=== PATIENT | female | born 1995 | race Caucasian/White ===

== ENCOUNTER 2017-09-26 23:49 | Emergency (ER) | payer OTHER, SELFPAY ==
[2017-09-26 23:50] VITALS: BP 126/83; PULSE 78; RESP 16; TEMP 36.8; O2SAT 98; BMI 23.6
--- NOTE | 2017-09-27 00:09 | ED.VISSUMM ---
- ER Visit Summary Date of Service: 09/27/17 Chief Complaint: [] Possible allergic reaction History of Present Illness: The patient is a 21 F date she has had allergic reaction this morning. She took Augmentin for sinus infection and possible strep throat. She then took an antihistamine afterwards was cleared up her symptoms. She has no history of penicillin allergy. Came in for further evaluation. Physical Examination: [] Vital signs reviewed General: Well-nourished well-developed Head: Normocephalic atraumatic Eyes: Pupils equal round and reactive to light extraocular movements intact ENT: TMs clear no hemotympanum no trauma Neck: Nontender full range of motion Cardiovascular: Regular rate rhythm no murmurs normal S1-S2 Respiratory: No distress clear to auscultation bilaterally chest nontender Abdomen: Soft nontender nondistended normal bowel sounds no masses Back: Nontender no CVA tenderness Extremities: Nontender active range of motion ?4 extremities no trauma Skin: Normal color no trauma Neuro alert oriented cranial nerves II through XII intact normal strength sensation reflexes Test Results: [] Emergency Department Course and Treatment: the patient shows no active symptoms of allergic reaction. It appears that the medication has worked. She will continue this as needed. She will stop the Augmentin. This could be viral. Patient is adamant that she likely has strep throat as she gets this frequently. Will be switched to Omnicef and will follow-up as an outpatient. Treatment Plan: [] Disposition: [] Impression: [] Allergic reaction to Augmentin This note was generated with [employer] dictation software. It may contain incorrect words, spelling, and punctuation that were not noted in review of the chart prior to signing ED Disposition - Plan for ED Patient: Chief Complaint: Allergic Reaction Referrals: Care Physician,No Primary [Primary Care Provider] -
--- NOTE | 2017-09-27 00:11 | ED.DEP ---
ED Disposition - Plan for ED Patient: Disposition: Home or Assisted Living Chief Complaint: Allergic Reaction Instructions: ED Drug React Allergic Prescriptions: Cefdinir [Omnicef [equiv]] 300 mg PO Q12H #14 cap Referrals: Care Physician,No Primary [Primary Care Provider] -
[2017-09-27 00:31] VITALS: BP 128/80; PULSE 74; RESP 16; O2SAT 98
== END 2017-09-27 00:32 | disposition home or self-care (01) ==
PROVIDERS: Emergency Provider Emergency Medicine
DX: T78.40XA Allergy, unspecified, initial encounter (principal); T36.0X5A Adverse effect of penicillins, initial encounter; Y92.9 Unspecified place or not applicable; J32.9 Chronic sinusitis, unspecified
CPT/HCPCS: 99282